=== PATIENT | female | born 1955 | race Two or more races ===

== ENCOUNTER 2019-11-25 10:40 | Inpatient (IN) | payer OTHER, MEDICAID ==
[~2019-11-25] VITALS: Ht 165.1 cm; Wt 97.5 kg
[2019-11-25] MEDS ORDERED: KETOROLAC TROMETH 30 MG/ML 1ML VIAL IV ONE (11:00)
[2019-11-25 11:38] LABS: Basophils # (auto) 0.1 10 ^3/uL (0-0.2); Eosinophils # (auto) 0.2 10 ^3/uL (0-0.8); Hematocrit 48.3 % (36.0-46.0); Hemoglobin 15.7 g/dL (12.2-16.2); Lymphocytes # (auto) 1.4 10 ^3/uL (0.4-5.4); Lymphocytes % (auto) 17.1 % (10.0-50.0); Mean Corpuscular Hemoglobin 29.9 pg (28.0-32.0); Mean Corpuscular Hgb Conc. 32.5 g/dL (32.0-36.0); Mean Corpuscular Volume 92.2 fL (80.0-100.0); Monocytes # (auto) 0.4 10 ^3/uL (0-1.3); Monocytes % (auto) 4.4 % (0.0-12.0); Neutrophils # (auto) 6.2 10 ^3/uL (1.6-8.6); Neutrophils % (auto) 75.5 % (37.0-80.0); Nucleated Red Blood Cells % 0.1 %; Platelet Count (auto) 270 10^3/uL (140-450); Red Blood Cells 5.24 10^6/uL (4.0-5.20); Red Cell Distribution Width 13.8 % (11.8-14.3); White Blood Cell 8.3 10^3/uL (4.4-10.8)
[2019-11-25 11:55] LABS: Albumin 3.8 g/dL (3.4-5.0); BUN/Creatinine Ratio 24.3; Calcium 10.1 mg/dL (8.5-10.1); Magnesium 1.8 mg/dL (1.6-2.6); Potassium 4.1 mmol/L (3.5-5.1)
[2019-11-25 12:01] LABS: Bilirubin, Total 0.4 mg/dL (0.2-1.0); Total Protein 7.5 g/dL (6.4-8.2)
[2019-11-25] MEDS ORDERED: MORPHINE SULF INJ 2 MG/ML SYRINGE 1ML IV PRN (14:30)
[2019-11-25] MEDS ORDERED: LACTULOSE 20Gm/30ML SOLN PO PRN (14:30)
[2019-11-25] MEDS ORDERED: NITROGLYCERIN 0.4 MG SL TAB SL PRN (14:30)
[2019-11-25] MEDS ORDERED: ACETAMINOPHEN 500 MG TAB PO PRN (14:30)
[2019-11-25] MEDS ORDERED: PROMETHAZINE HCL 25 MG/ML 1ML IV PRN (14:30)
[2019-11-25] MEDS ORDERED: DEXTROSE (50%) 50ML SYRG IV PRN (14:30)
--- NOTE | 2019-11-25 16:00 | NUR ---
Telemetry admit from ER [facility] admitted to Telemetry unit after SBAR received. Patient oriented to Myriam Castro RN primary RN, unit, room, bed, and unit policies regarding patient care and visiting hours. Patient now on continuous telemetry monitoring, tele box #[id number] and telemetry reading on arrival to unit is sr. All questions and concerns addressed, patient verbalized understanding. Patient is alert and oriented x4. Respirations are even and unlabored. No s/s of distress/SOB noted or stated. Bed alarm on for safety. Bed is low, locked with 2x side rails up. Call light is within reach. Will continue to monitor Q1hr and PRN.
[2019-11-25] MEDS ORDERED: HYDR1TAB97 PO (17:02)
[2019-11-25] MEDS ORDERED: TOLT2CAP7 PO (17:02)
[2019-11-25] MEDS ORDERED: METF-371 PO (17:02)
[2019-11-25] MEDS ORDERED: GABA400C11 PO (17:02)
[2019-11-25] MEDS ORDERED: GLIP10TA9 PO (17:02)
[2019-11-25] MEDS ORDERED: DICL50TA2 PO (17:02)
[2019-11-25] MEDS ORDERED: CYCL1TAB18 PO (17:02)
[2019-11-25] MEDS ORDERED: PIOG15TA25 PO (17:02)
[2019-11-25] MEDS ORDERED: FENO54TA4 PO (17:02)
[2019-11-25] MEDS: LABETALOL HCL 5 MG/ML ML 20ML VIAL IV PRN (17:09)
[2019-11-25] MEDS: InsuLIN REG 1unit/0.01ml Soln (100units/ml) SC SCH ×2 (17:42→22:37)
[2019-11-25] MEDS: SODIUM CHLORIDE 0.9% 1,000 ML IV SCH (17:43)
[2019-11-25] MEDS: ACCU-CHEK COMFORT CURVE STRIP VI SCH ×2 (17:43→22:37)
[2019-11-25 17:58] VITALS: BP 175/95
--- NOTE | 2019-11-25 18:43 | NUR ---
UA/UDS Provided patient with supplies to provide urine sample. Patient verbalized understanding. Will continue to monitor.
[2019-11-25 18:44] VITALS: BP 150/71
[2019-11-25 22:00] VITALS: BP 153/76
[2019-11-25] MEDS: FAMOTIDINE 20 MG TAB PO SCH (22:35)
[2019-11-25] MEDS: ATORVASTATIN 20 MG TAB PO SCH (22:35)
[2019-11-25] MEDS: TEMAZEPAM 15 MG CAP PO PRN (22:38)
[2019-11-25] MEDS: traMADol HCL 50 MG TAB PO PRN (22:39)
[2019-11-25 22:49] LABS: Urine Bacteria NONE SEEN /hpf (None Seen); Urine Blood Negative /uL (Negative); Urine Specific Gravity 1.031 (1.001-1.035); Urine WBC 3 /hpf (0 - 5)
[2019-11-25 22:58] LABS: Amphetamine Screen, Urine NEGATIVE (NEGATIVE); Barbiturate Scree,Urine NEGATIVE (NEGATIVE); Benzodiazephine Screen, Urine NEGATIVE (NEGATIVE); Cannabinoid Screen, Urine NEGATIVE (NEGATIVE); Cocaine Screen, Urine NEGATIVE (NEGATIVE); Opiate Scree,Urine NEGATIVE (NEGATIVE); Phencyclidine Screen, Urine NEGATIVE (NEGATIVE)
[2019-11-25 22:59] LABS: Alcohol, Urine < 3.0 mg/dL (0-10)
[2019-11-26 01:03] LABS: Folate (Folic Acid) > 24.00 ng/mL (5.38-24)
[2019-11-26] MEDS: SODIUM CHLORIDE 0.9% 1,000 ML IV SCH (02:52)
[2019-11-26 05:00] VITALS: BP 159/83
[2019-11-26] MEDS: InsuLIN REG 1unit/0.01ml Soln (100units/ml) SC SCH ×4 (06:47→23:08)
[2019-11-26] MEDS: ACCU-CHEK COMFORT CURVE STRIP VI SCH ×4 (06:54→23:06)
[2019-11-26] MEDS: traMADol HCL 50 MG TAB PO PRN ×3 (06:54→23:07)
--- NOTE | 2019-11-26 07:35 | NUR ---
Patient in bed, awake, oriented x4, bruises noted on the left lower breast area. Patient complains of pain when she turns, gets up from bed. FWW from home at bedside. With bedside commode.
[2019-11-26 08:20] VITALS: BP 174/94
[2019-11-26 08:54] VITALS: BP 174/94
--- NOTE | 2019-11-26 10:19 | NUR ---
BP = 166/73, Heart rate = 87 bpm, O2 Sat 97% on RA. Patient sitting up on bed.
[2019-11-26] MEDS: LABETALOL HCL 5 MG/ML ML 20ML VIAL IV PRN (10:20)
[2019-11-26] MEDS: FAMOTIDINE 20 MG TAB PO SCH ×2 (10:20→23:06)
[2019-11-26] MEDS: ENOXAPARIN SOD 40 MG/0.4 ML SYRINGE SC SCH (10:20)
--- NOTE | 2019-11-26 10:20 | NUR ---
Labetalol Inj 10 mg given for SBP>160 PRN.
--- NOTE | 2019-11-26 11:08 | NUR ---
Patient stated she's in pain, at 6/10 at this time. Ultram 50 mg PO given for pain as ordered.
--- NOTE | 2019-11-26 11:14 | NUR ---
BP = 120/69, Heart rate = 75 bpm, O2 Sat = 95% on RA. No acute distress noted.
[2019-11-26 13:00] VITALS: BP 137/76
--- NOTE | 2019-11-26 13:25 | NUR ---
Daughter Kaitlin ([phone]; Password: "[email or web address]") called regarding patient. Asked the patient if it's okay that the doctor discuss her plan of care w/ her daughter if needed. Patient said it's okay, her daughter can be called by the doctor if needed regarding her care.
[2019-11-26 16:46] VITALS: BP 142/81
[2019-11-26] MEDS ORDERED: amLODIPine BESYLATE 5 MG TAB PO ONE (18:30)
[2019-11-26] MEDS ORDERED: LOSARTAN POTASSIUM 25 MG TAB PO ONE (18:30)
[2019-11-26 22:00] VITALS: BP 150/88
[2019-11-26] MEDS: ATORVASTATIN 20 MG TAB PO SCH (23:05)
[2019-11-26] MEDS: TEMAZEPAM 15 MG CAP PO PRN (23:07)
[2019-11-27] VITALS (7 sets, daily range): BP systolic 118–154; BP diastolic 61–90
[2019-11-27] MEDS: ACCU-CHEK COMFORT CURVE STRIP VI SCH ×4 (06:22→22:39)
[2019-11-27] MEDS: InsuLIN REG 1unit/0.01ml Soln (100units/ml) SC SCH ×4 (06:23→22:58)
--- NOTE | 2019-11-27 08:00 | NUR ---
ASSESSMENT NOTE PT IS ALERT ORIENTED X4, OBESE BUT FIT, ABLE TO AMBULATE SLOWLY AROUND THE BED IF NEEDED, PT CONTINUE HAVING BRUISES AT LEFT BREAST BONE, OCCASIONALLY PRODUCTIVE WITH CLEAN SPUTUM STATED THAT BECAUSE I STOP SMOKING SINCE I CAME HERE>, PT ASSISTED NEEDED AT ALL TIMES, FALL RISK PRECAUTIONS, CALL LIGHT WITHIN REACH
--- NOTE | 2019-11-27 08:15 | NUR ---
BED SIDE COMMODE PT IS ABLE TO USE IT NEEDED
[2019-11-27] MEDS: ENOXAPARIN SOD 40 MG/0.4 ML SYRINGE SC SCH (09:04)
[2019-11-27] MEDS: FAMOTIDINE 20 MG TAB PO SCH ×2 (09:05→22:38)
[2019-11-27] MEDS: LOSARTAN POTASSIUM 25 MG TAB PO SCH (09:05)
[2019-11-27] MEDS: amLODIPine BESYLATE 5 MG TAB PO SCH (09:06)
[2019-11-27] MEDS ORDERED: FUROSEMIDE 20 MG/2 ML VIAL IV ONE (10:45)
[2019-11-27] MEDS ORDERED: NICOTINE 21MG/24 HR TOPICAL PATCH TD ONE (10:45)
--- NOTE | 2019-11-27 10:50 | NUR ---
DR ABDI AT BED SIDE FOLLOWING UP ON PT AND ASSESSING HER LUNGS, WITH NEW ORDERS
[2019-11-27] MEDS: ALBUTEROL SULF 2.5 MG/0.5ML(0.5%) NEB SOLN NEB SCH ×3 (13:14→22:44)
[2019-11-27] MEDS: IPRATROPIUM BROM 0.5 MG/2.5ML INH SOL NEB SCH ×3 (13:14→22:44)
[2019-11-27 13:30] LABS: Cholesterol 134 mg/dL (< 200); HDL Cholesterol 40 mg/dL (40-59); LDL Cholesterol 67 mg/dL (< 100); Triglycerides 283 mg/dL (< 150)
[2019-11-27] MEDS: traMADol HCL 50 MG TAB PO PRN (13:38)
[2019-11-27] MEDS ORDERED: hydrALAZINE HCL 20 MG/ML VL IV PRN (17:00)
[2019-11-27] MEDS: FUROSEMIDE 20 MG/2 ML VIAL IV SCH (17:24)
--- NOTE | 2019-11-27 18:00 | NUR ---
IV insertion IV access obtained, via clean sterile technique by inserting 22 gauge catheter at after attempt(s). IV secured properly. No trauma to site. Patient tolerated procedure well. OLD IV AT LEFT HAND REMOVED, INTACT, INCONVIANCE TO PT, TOLERATED WELL
--- NOTE | 2019-11-27 18:46 | NUR ---
RT NOTE PT WAS SEEN BY RT FOR HHN TX. PT TOLERATES WELL VIA MASK. NO ADVERSE REACTION NOTED. CONT ORDERED Addendum: 11/27/19 at 1857 by Brigitte Mark RT Amended: Links added.
--- NOTE | 2019-11-27 18:54 | NUR ---
PT CONTINUE STABLE, CONTINUE MONITORING
[2019-11-27] MEDS ORDERED: LORazepam 2MG/ML-1ML VIAL IV PRN (20:15)
[2019-11-27] MEDS: ATORVASTATIN 20 MG TAB PO SCH (22:38)
--- NOTE | 2019-11-27 22:41 | NUR ---
RT NOTE PT WAS SEEN BY RT FOR HHN TX. PT IS AWAKE AND SITTING AT EDGE OF BED. PT OFFERED HHN TX. PT STATES SHE IS JUST WAITING FOR HER INSULIN AND WANTS TO GO RIGHT BACK TO SLEEP. PT STATES NO TREATMENT IS NEEDED AT THIS TIME. HR 111, RR 16, BS CLEAR/DIM, POX 94% . NO TREATMENT GIVEN AT THIS TIME. PT REQUESTS NOT TO BE AWAKENED FOR TX IF SLEEPING NEXT ROUNDS. CONT ORDERED Addendum: 11/28/19 at 0122 by Brigitte Mark RT Amended: Links added.
[2019-11-28] MEDS: IPRATROPIUM BROM 0.5 MG/2.5ML INH SOL NEB SCH ×6 (02:00→22:29)
[2019-11-28] MEDS: ALBUTEROL SULF 2.5 MG/0.5ML(0.5%) NEB SOLN NEB SCH ×6 (02:00→22:29)
[2019-11-28 05:00] VITALS: BP 138/68
[2019-11-28 06:50] LABS: Basophils # (auto) 0.1 10 ^3/uL (0-0.2); Basophils % (auto) 0.9 % (0.0-2.0); Eosinophils # (auto) 0.2 10 ^3/uL (0-0.8); Eosinophils % (auto) 2.8 % (0.0-7.0); Hematocrit 45.9 % (36.0-46.0); Lymphocytes # (auto) 1.9 10 ^3/uL (0.4-5.4); Lymphocytes % (auto) 22.8 % (10.0-50.0); Mean Corpuscular Hemoglobin 30.1 pg (28.0-32.0); Mean Corpuscular Hgb Conc. 32.8 g/dL (32.0-36.0); Mean Corpuscular Volume 91.8 fL (80.0-100.0); Monocytes # (auto) 0.5 10 ^3/uL (0-1.3); Monocytes % (auto) 6.1 % (0.0-12.0); Neutrophils # (auto) 5.5 10 ^3/uL (1.6-8.6); Neutrophils % (auto) 67.4 % (37.0-80.0); Nucleated Red Blood Cells % 0.3 %; Platelet Count (auto) 268 10^3/uL (140-450); Red Blood Cells 5.01 10^6/uL (4.0-5.20); Red Cell Distribution Width 13.5 % (11.8-14.3); White Blood Cell 8.1 10^3/uL (4.4-10.8)
[2019-11-28] MEDS: FUROSEMIDE 20 MG/2 ML VIAL IV SCH ×2 (06:54→17:36)
[2019-11-28] MEDS: InsuLIN REG 1unit/0.01ml Soln (100units/ml) SC SCH ×4 (06:58→22:46)
[2019-11-28] MEDS: ACCU-CHEK COMFORT CURVE STRIP VI SCH ×4 (07:01→22:15)
[2019-11-28 07:10] LABS: INR 1.02 (0.9-1.15); Partial Thromboplastin Time 27.7 sec (23.64-32.05)
[2019-11-28 07:11] LABS: Potassium 4.1 mmol/L (3.5-5.1)
[2019-11-28 07:18] LABS: Albumin 3.3 g/dL (3.4-5.0); BUN/Creatinine Ratio 24.7; Calcium 10.1 mg/dL (8.5-10.1); Magnesium 2.1 mg/dL (1.6-2.6)
[2019-11-28 07:20] LABS: Bilirubin, Total 0.9 mg/dL (0.2-1.0); Phosphorus 2.9 mg/dL (2.5-4.90)
[2019-11-28 08:00] VITALS: BP 138/68
--- NOTE | 2019-11-28 08:00 | NUR ---
ASSESSMENT NOTE PT IS ALERT ORIENTED X4, SITTING AT THE SIDE OF THE BED, INCONTINENT IN URINE, USE BED SIDE COMMODE NEEDED, NOTED THAT PT GETTING BETTER ABLE TO TAKE A DEEP BREATH AND MOVE AROUND WITHOUT ANY DIFFICULTY, ASSISTED AT ALL TIMES NEEDED, KEPT SKIN CLEAN AND DRY, FALL RISK PRECAUTIONS, CALL LIGHT WITHIN REACH
[2019-11-28 09:20] VITALS: BP 117/68
[2019-11-28] MEDS: FAMOTIDINE 20 MG TAB PO SCH ×2 (09:54→22:15)
[2019-11-28] MEDS: ENOXAPARIN SOD 40 MG/0.4 ML SYRINGE SC SCH (09:55)
[2019-11-28] MEDS: NICOTINE 21MG/24 HR TOPICAL PATCH TD SCH (09:57)
[2019-11-28] MEDS: LOSARTAN POTASSIUM 25 MG TAB PO SCH (09:58)
[2019-11-28] MEDS: amLODIPine BESYLATE 5 MG TAB PO SCH (09:58)
[2019-11-28] MEDS: traMADol HCL 50 MG TAB PO PRN ×2 (10:06→20:16)
--- NOTE | 2019-11-28 10:11 | NUR ---
PHYSICAL THERAPY AT BED SIDE
--- NOTE | 2019-11-28 10:27 | NUR ---
PT IS BACK TO BED, AFTER AMBULATING IN THE HALLWAYS, NO DISTRESS NOTED
--- NOTE | 2019-11-28 11:22 | NUR ---
Est energy needs 4401-5724 kcal (25-30 kcal/kg IBW 61.8kg) Est protein needs 62-74g (1-1.2g/kg IBW 61.8kg) Will reassess prn. Addendum: 11/28/19 at [address] Amended: Links added.
--- NOTE | 2019-11-28 12:00 | NUR ---
DR ABDI AT BED SIDE FOLLOWING UP ON PT, INFORM PT WITH CARE PLAIN OF DISCHARGE AFTER STRESS TEST TOMORROW, PT MADE AWARE THAT SHE HAVE TO WAIT FOR STRESS TEST RESULTS BEFORE DISCHARGE HOME
[2019-11-28 13:09] VITALS: BP 121/71
[2019-11-28 17:14] VITALS: BP 125/83
--- NOTE | 2019-11-28 18:50 | NUR ---
PT IS CONTINUE STABLE, CONTINUE MONITORING
--- NOTE | 2019-11-28 19:05 | NUR ---
Opening note Assumed care of patient. Patient alert and orientated x4. No sob or pain noted at this time. POC reviewed. Bed locked in lowest position. Side rails up x2. Call light within reach. Will continue to monitor.
[2019-11-28 22:00] VITALS: BP 146/83
[2019-11-28] MEDS: ATORVASTATIN 20 MG TAB PO SCH (22:15)
[2019-11-29] MEDS: ALBUTEROL SULF 2.5 MG/0.5ML(0.5%) NEB SOLN NEB SCH ×4 (02:51→14:19)
[2019-11-29] MEDS: IPRATROPIUM BROM 0.5 MG/2.5ML INH SOL NEB SCH ×4 (02:51→14:19)
[2019-11-29 05:00] VITALS: BP 130/76
[2019-11-29] MEDS: FUROSEMIDE 20 MG/2 ML VIAL IV SCH (05:59)
[2019-11-29] MEDS: InsuLIN REG 1unit/0.01ml Soln (100units/ml) SC SCH ×2 (06:19→11:13)
[2019-11-29] MEDS: ACCU-CHEK COMFORT CURVE STRIP VI SCH ×2 (06:19→11:09)
[2019-11-29 06:33] LABS: INR 1.04 (0.9-1.15); Partial Thromboplastin Time 26.9 sec (23.64-32.05)
[2019-11-29 06:35] LABS: Basophils # (auto) 0 10 ^3/uL (0-0.2); Basophils % (auto) 0.6 % (0.0-2.0); Eosinophils # (auto) 0.2 10 ^3/uL (0-0.8); Eosinophils % (auto) 2.9 % (0.0-7.0); Hematocrit 42.7 % (36.0-46.0); Hemoglobin 14.6 g/dL (12.2-16.2); Lymphocytes # (auto) 1.8 10 ^3/uL (0.4-5.4); Lymphocytes % (auto) 21.9 % (10.0-50.0); Mean Corpuscular Hemoglobin 31.1 pg (28.0-32.0); Mean Corpuscular Hgb Conc. 34.2 g/dL (32.0-36.0); Mean Corpuscular Volume 90.8 fL (80.0-100.0); Monocytes # (auto) 0.6 10 ^3/uL (0-1.3); Monocytes % (auto) 7.4 % (0.0-12.0); Neutrophils # (auto) 5.4 10 ^3/uL (1.6-8.6); Neutrophils % (auto) 67.2 % (37.0-80.0); Nucleated Red Blood Cells % 0.1 %; Platelet Count (auto) 244 10^3/uL (140-450); Red Cell Distribution Width 13.6 % (11.8-14.3)
[2019-11-29 06:47] LABS: Potassium 3.6 mmol/L (3.5-5.1)
[2019-11-29 07:13] LABS: Albumin 3.2 g/dL (3.4-5.0); BUN/Creatinine Ratio 29.8; Calcium 10.1 mg/dL (8.5-10.1); Magnesium 1.9 mg/dL (1.6-2.6); Phosphorus 3.2 mg/dL (2.5-4.90); Total Protein 6.6 g/dL (6.4-8.2)
--- NOTE | 2019-11-29 07:30 | NUR ---
Closing note Endorsed care to day shift RN
--- NOTE | 2019-11-29 07:40 | NUR ---
Opening Note Assumed pt care from CHRIS RN. Pt is a/ox4 with no s/s of distress or SOB. Pt is currently sitting upright in bed with no complaints at this time. Pt has been NPO since 0000 for scheduled stress test; pt aware. Discussed POC with pt; pt verbalized understanding. Safety measures maintained with call light within reach, bed in lowest position and side rails up. Will continue to monitor.
[2019-11-29 08:00] VITALS: BP 144/71
[2019-11-29] MEDS ORDERED: ADENOSINE 82 MG in GIVE UN-DILUTED 0 ML IV STA (08:20)
--- NOTE | 2019-11-29 08:35 | NUR ---
Orthostatic VS Attempted to obtain Orthostatic VS. Only able to obtain sitting and laying; pt stated she felt dizzy and could not stand at this time. Laying: BP 144/71 HR 100 Sitting: BP 145/84 HR 103 Will notify MARIAH Pacheco Addendum: 11/29/19 at 0900 by VIMAL MARINA RN RN MARIAH Pacheco made aware
[2019-11-29 08:36] VITALS: BP 145/84
--- NOTE | 2019-11-29 08:59 | NUR ---
Pt Off Unit Pt off unit for Stress Test Addendum: 11/29/19 at 1003 by VIMAL MARINA RN RN Radiology notified me that pt will be taken from ST to MRI. Addendum: 11/29/19 at 1110 by VIMAL MARINA RN RN Pt back on unit
[2019-11-29 09:28] VITALS: BP 127/80
--- NOTE | 2019-11-29 09:28 | NUR ---
Respiratory note: PT OFF UNIT. UNABLE TO ADMINISTER MED NEB TX AT THIS TIME.
--- NOTE | 2019-11-29 09:50 | NUR ---
Attempted PT treatment, pt is off unit for procedure.
[2019-11-29] MEDS: LOSARTAN POTASSIUM 25 MG TAB PO SCH (10:59)
[2019-11-29] MEDS: FAMOTIDINE 20 MG TAB PO SCH (10:59)
[2019-11-29] MEDS: amLODIPine BESYLATE 5 MG TAB PO SCH (11:00)
[2019-11-29] MEDS: NICOTINE 21MG/24 HR TOPICAL PATCH TD SCH (11:00)
[2019-11-29] MEDS: ENOXAPARIN SOD 40 MG/0.4 ML SYRINGE SC SCH (11:00)
[2019-11-29 12:00] VITALS: BP 126/69
--- NOTE | 2019-11-29 13:19 | NUR ---
Dr Curry at Bedside MD to see pt. stated that if ST is negative, pt can be d/c'ed home. stated she would page Junior. Will continue to monitor. Addendum: 11/29/19 at 1503 by VIMAL MARINA RN RN ORDERS FOR D/C WILL IMPLEMENT
[2019-11-29] MEDS ORDERED: ATOR20TA50 PO (14:38)
[2019-11-29] MEDS ORDERED: LOS25T PO (14:38)
[2019-11-29] MEDS ORDERED: AML5T PO (14:38)
[2019-11-29 15:09] VITALS: BP 126/69
--- NOTE | 2019-11-29 15:39 | NUR ---
IV and Tele 25 D/C'ed IV to pt's R FA removed. Catheter was removed fully intact. Site is asymptomatic. Pressure was applied to site for 3 minutes with gauze and then wrapped in coban. Pt instructed to keep dressing on for 30 minutes Tele 24 removed and sent back to ICU via [employer] system. Staff made aware.
--- NOTE | 2019-11-29 16:25 | NUR ---
Pt D/C'ed Off Unit Pt d/c'ed off unit. Pt ambulated off unit using walker. Pt is a/ox4 with no s/s of distress or SOB. Pt provided all education material, prescriptions, follow up information and all questions were answered. IV and tele were d/c'ed prior to d/c.
== END 2019-11-29 16:27 | disposition home or self-care (01) | DRG 312 ==
LOC: ER 10:40 → TELE 10:41 → TELE-CENTR 16:31
PROVIDERS: ADMIT Internal Medicine; ATTEND Internal Medicine Nephrology
DX: R55 Syncope and collapse (principal); I13.0 Hypertensive heart and chronic kidney disease with heart failure and stage 1 through stage 4 chronic kidney disease, or unspecified chronic kidney disease; E11.65 Type 2 diabetes mellitus with hyperglycemia; R29.6 Repeated falls; E66.01 Morbid (severe) obesity due to excess calories; G89.4 Chronic pain syndrome; E11.42 Type 2 diabetes mellitus with diabetic polyneuropathy; E78.5 Hyperlipidemia, unspecified; F17.210 Nicotine dependence, cigarettes, uncomplicated; I50.9 Heart failure, unspecified; M54.5 Low back pain; K42.9 Umbilical hernia without obstruction or gangrene; E11.22 Type 2 diabetes mellitus with diabetic chronic kidney disease; R00.0 Tachycardia, unspecified; M17.0 Bilateral primary osteoarthritis of knee; N18.2 Chronic kidney disease, stage 2 (mild); Z82.49 Family history of ischemic heart disease and other diseases of the circulatory system; Z68.35 Body mass index [BMI] 35.0-35.9, adult; Z83.3 Family history of diabetes mellitus; Z88.6 Allergy status to analgesic agent; Z88.1 Allergy status to other antibiotic agents
CPT/HCPCS: 36415; 70450; 70551; 71046; 73562; 78452; 80053; 80061; 80307; 81001; 82550; 82607; 82746; 82962; 83036; 83735; 83880; 84100; 84443; 84484; 85025; 85610; 85652; 85730; 93005; 93017; 93306; 93886; 94640; 95819; 97163; G0378; J0153; J1815; J1885

== ENCOUNTER 2023-08-21 15:51 | Emergency (ER) | payer OTHER, MEDICAID ==
[~2023-08-21] VITALS: Ht 167.6 cm; Wt 90.9 kg
[~2023-08-21 15:51] MED LIST: AML5T PO; ATOR20TA50 PO; CYCL-839 PO; FENO54TA4 PO; GABA-1251 PO; GLIP10TA9 PO; LOS25T PO; PIOG15TA25 PO; TOLT2CAP PO
[2023-08-21 16:08] VITALS: PULSE 94; RESP 15; O2SAT 96
[2023-08-21 17:50] LABS: Basophils # (auto) 0 10 ^3/uL (0-0.2); Basophils % (auto) 0.5 % (0.0-2.0); Eosinophils # (auto) 0.5 10 ^3/uL (0-0.8); Eosinophils % (auto) 9.6 % (0.0-7.0); Hematocrit 42.4 % (36.0-46.0); Hemoglobin 13.7 g/dL (12.2-16.2); Lymphocytes # (auto) 0.4 10 ^3/uL (0.4-5.4); Lymphocytes % (auto) 8.9 % (10.0-50.0); Mean Corpuscular Hemoglobin 29.6 pg (28.0-32.0); Mean Corpuscular Hgb Conc. 32.4 g/dL (32.0-36.0); Mean Corpuscular Volume 91.4 fL (80.0-100.0); Monocytes # (auto) 0.2 10 ^3/uL (0-1.3); Neutrophils # (auto) 3.8 10 ^3/uL (1.6-8.6); Red Blood Cells 4.64 10^6/uL (4.0-5.20); Red Cell Distribution Width 13.8 % (11.8-14.3)
[2023-08-21] MEDS: SODIUM CHLORIDE 0.9% 500 ML IVB ONE (17:54)
[2023-08-21 18:07] LABS: Alanine Aminotransferase 23 U/L (7-40); Albumin 3.9 g/dL (3.2-4.8); Alkaline Phosphatase 118 U/L (46-116); Anion Gap 6 (5-15); Aspartate Aminotransferase 22 U/L (13-40); BUN/Creatinine Ratio 29.9 (10.0-20.0); Bilirubin, Total 0.3 mg/dL (0.2-1.0); Blood Alcohol < 3.0 mg/dL (<10); Blood Urea Nitrogen 23 mg/dL (9-23); Calcium 10.2 mg/dL (8.5-10.1); Carbon Dioxide 28 mmol/L (20-30); Chloride 108 mmol/L (98-107); Glucose 76 mg/dL (74-106); Potassium 4.6 mmol/L (3.5-5.1); Sodium 142 mmol/L (136-145)
[2023-08-21 18:08] LABS: Total Protein 5.4 g/dL (5.7-8.2)
[2023-08-21 19:30] VITALS: BP 135/50; RESP 20; TEMP 98.2; O2SAT 97
[2023-08-21 21:02] VITALS: PULSE 89
== END 2023-08-21 21:35 | disposition home or self-care (01) ==
LOC: ER 15:51 → EDBD 15:51 → ER 21:35
DX: B34.9 Viral infection, unspecified (principal); R53.1 Weakness; E11.9 Type 2 diabetes mellitus without complications; E78.5 Hyperlipidemia, unspecified; F17.210 Nicotine dependence, cigarettes, uncomplicated; Z90.49 Acquired absence of other specified parts of digestive tract; Z79.899 Other long term (current) drug therapy; Z88.8 Allergy status to other drugs, medicaments and biological substances
CPT/HCPCS: 36415; 70450; 71045; 80053; 80320; 85025; 93005; 99285; J7040; 96360